=== PATIENT | male | born 1970 | race Caucasian/White ===

== ENCOUNTER → 2018-07-09 | Outpatient (CLI) | payer BC ==
[~2018-07-09] MED LIST: DAR100 PO; KET10 PO; LOR5 PO; LOR5/325 PO; NYQUIL; PER PO
--- NOTE | 2018-07-09 14:34 | RADIOLOGY IMAGING REPORT ---
FACILITY: [facility] - [place] PATIENT NAME: Arsenio Boss : 1970 MR: [id number] V: [id number] EXAM DATE: ORDERING PHYSICIAN: JOSEF GAMINO TECHNOLOGIST: [place] [facility] [place] Arsenio [place] : 1970 Visit/Account:[id number] Date of Sevice: 07/09/2018 Exam type: CHEST PA AND LAT History: Shortness of breath, abnormal breath sounds, smoker approximately three cigarettes per day Comparison: None. Findings: The lungs are free of acute effusions, infiltrates or edema. There is no evidence of a pneumothorax or pneumomediastinum. Cardiac silhouette is normal in size. The trachea is in midline. There are m ild spondylotic changes of the thoracic spine IMPRESSION: 1. No acute cardiac pulmonary process is seen Report Dictated By: Jazmín Hui MD at 07/09/2018 2:25 PM Report E-Signed By: Jazmín Hui MD at 07/09/2018 2:29 PM [id number]:[email or web address]
== END ==
LOC: RAD 12:28
PROVIDERS: ATTEND Family Medicine
DX: M43.04 Spondylolysis, thoracic region (principal)
CPT/HCPCS: 71046

== ENCOUNTER → 2018-08-05 | Outpatient (CLI) | payer BC ==
--- NOTE | 2018-08-05 15:27 | RADIOLOGY IMAGING REPORT ---
FACILITY: [facility] - [place] PATIENT NAME: Arsenio Boss : 1970 MR: [id number] V: [id number] EXAM DATE: ORDERING PHYSICIAN: JOSEF GAMINO TECHNOLOGIST: Location: [facility] Patient: Arsenio Boss : 1970 Visit/Account:[id number] Date of Sevice: 08/05/2018 EXAMINATION: CT Head without intravenous contrast HISTORY: Vision changes. TECHNIQUE: Axial images were obtained from the skull base to the vertex without intravenous contrast . Sagittal and coronal reformatted images are also submitted. One of the following dose optimization techniques was utilized in the performance of this exam: Autom ated exposure control; adjustment of the mA and/or kV according to the patient's size; or use of an i terative reconstruction technique. Specific details can be referenced in the facility's radiology C T exam operational policy. COMPARISON: None available. FINDINGS: Brain volume: Normal. Ventricles: Negative. Acute ischemic changes: None. Hemorrhage: None. Masses / edema: None. Schmid-white: Negative. White matter: Negative. Vessels: Negative. Extra-axial: Negative. Calvarium / skull base: Negative. Visualized sinuses / orbits: Negative. IMPRESSION: Normal noncontrast head CT. Report Dictated By: Hamilton Li MD at 08/05/2018 3:19 PM Report E-Signed By: Hamilton Li MD at 08/05/2018 3:22 PM WSN:[email or web address]
== END ==
LOC: CT 08-02 03:00
PROVIDERS: ATTEND Family Medicine
DX: I10 Essential (primary) hypertension (principal); H53.9 Unspecified visual disturbance
CPT/HCPCS: 70450